=== PATIENT | female | born 1975 | race Caucasian/White ===

== ENCOUNTER 2016-03-23 14:58 | Emergency (ER) | payer MEDICAID, OTHER ==
[~2016-03-23] VITALS: Ht 167.6 cm; Wt 62.6 kg
[~2016-03-23 14:58] MED LIST: ABILIFY15 M1 PO; CELEXA10 MG PO; VISTARIL25 MG PO
[2016-03-23 15:02] VITALS: BP 119/60
--- NOTE | 2016-03-23 17:20 | NUR ---
PATIENT PRESENTS TO ED W LEFT TONGUE PAIN X2HRS; PT STATES WAS CHEWING GUM AND "BIT A HOLE INTO HER TONGUE". DENIES N/V/D; SKIN IS PINK/WARM/DRY; AAOX4 WITH EVEN AND STEADY GAIT; LUNGS CLEAR BL; HR EVEN AND REGULAR; PT DENIES ANY FEVER, CP, SOB, OR COUGH AT THIS TIME; PATIENT STATES PAIN OF 10/10 AT THIS TIME; VSS; PATIENT POSITIONED FOR COMFORT; HOB ELEVATED; BEDRAILS UP X2; BED DOWN. DAVID WEBER EVALUATED PT.
--- NOTE | 2016-03-23 17:30 | NUR ---
Patient discharged with v/s stable. Written and verbal after care instructions given and explained. Patient alert, oriented and verbalized understanding of instructions. Ambulatory with steady gait. All questions addressed prior to discharge. ID band removed. Patient advised to follow up with PMD. Rx of PERIDEX ORAL RINSE given. Patient educated on indication of medication including possible reaction and side effects. Opportunity to ask questions provided and answered.
[2016-03-23 17:37] VITALS: BP 106/74
== END 2016-03-23 17:30 | disposition home or self-care (01) ==
LOC: MED 15:18
DX: S00.512A Abrasion of oral cavity, initial encounter (principal); Z88.6 Allergy status to analgesic agent; X58.XXXA Exposure to other specified factors, initial encounter; Y93.89 Activity, other specified; Y92.89 Other specified places as the place of occurrence of the external cause; Y99.8 Other external cause status

== ENCOUNTER 2016-06-01 16:04 | Emergency (ER) | payer OTHER ==
[~2016-06-01] VITALS: Ht 172.7 cm; Wt 60.8 kg
[~2016-06-01 16:04] MED LIST changes: -ABILIFY15 M1 PO; +ARIP15TA5 PO; -CELEXA10 MG PO; +CITA10TA11 PO; +HYDR25CA1 PO; -VISTARIL25 MG PO
[2016-06-01 16:21] VITALS: BP 124/88
--- NOTE | 2016-06-01 17:14 | NUR ---
PATIENT AMBULATED TO BED 04
--- NOTE | 2016-06-01 17:15 | NUR ---
41/F BIB C/O FELL FROM [facility] X1 WK; DENIES LOC;DID NOT SEEK MEDICAL ATTENTION; SLURRED SPEECH, NO DRIFT, NO FACIAL ASYMMETRY. PT DENIES N/V/D; SKIN IS PINK/WARM/DRY; AAOX4 WITH EVEN AND STEADY GAIT; LUNGS CLEAR BL; HR EVEN AND REGULAR; PT DENIES ANY FEVER, CP, SOB, OR COUGH AT THIS TIME; PATIENT STATES PAIN OF 10/10 AT THIS TIME; VSS; PATIENT POSITIONED FOR COMFORT; HOB ELEVATED; BEDRAILS UP X2; BED DOWN. ER MD MADE AWARE OF PT STATUS.
[2016-06-01 17:45] VITALS: BP 119/67
--- NOTE | 2016-06-01 17:45 | NUR ---
Patient discharged with v/s stable. Written and verbal after care instructions given and explained. Patient verbalized understanding. Ambulatory with steady gait. All questions addressed prior to discharge. Advised to follow up with PMD.
== END 2016-06-01 17:45 | disposition home or self-care (01) ==
LOC: MED 16:04
DX: S00.83XA Contusion of other part of head, initial encounter (principal); F17.200 Nicotine dependence, unspecified, uncomplicated; Z88.5 Allergy status to narcotic agent; W19.XXXA Unspecified fall, initial encounter; Y93.89 Activity, other specified; Y92.89 Other specified places as the place of occurrence of the external cause; Y99.8 Other external cause status
CPT/HCPCS: 70450; 70486; 82948; 99284

== ENCOUNTER 2018-08-22 14:53 | Emergency (ER) | payer OTHER ==
[~2018-08-22] VITALS: Ht 171.4 cm; Wt 71.7 kg
[~2018-08-22 14:53] MED LIST changes: +ARIP15TA1 PO; -ARIP15TA5 PO
[2018-08-22 15:15] VITALS: BP 99/67
--- NOTE | 2018-08-22 15:19 | NUR ---
PT AMB TO [facility]. VSS AT THIS TIME. PT [id number].
--- NOTE | 2018-08-22 15:22 | NUR ---
PT PLAYING ON HER PHONE IN ER LOBBY. NO DISTRESS NOTED.
--- NOTE | 2018-08-22 15:55 | NUR ---
PATIENT AMBULATED TO ER BED 6.
--- NOTE | 2018-08-22 16:00 | NUR ---
PT BIB [facility] WITH C/O ABDOMINAL PAIN AND DIARRHEA X 2 DAYS. PAIN 5/10. +NAUSEA, -VOMITING. PT AA0X4. STATES SHE WANTS TO BE PRESCRIBED LOMOTIL FOR RELIEF. PMH- DENIES
--- NOTE | 2018-08-22 17:00 | NUR ---
CALLED [facility] FOR THE REGULAR TRAY FOR PT.
[2018-08-22 17:06] LABS: BASOPHILS # (AUTO) 0.1 K/uL (0.00-0.22); EOSINOPHILS # (AUTO) 0.2 K/uL (0-0.4); HEMATOCRIT 37.7 % (36-48); HEMOGLOBIN 12.6 g/dL (12.0-16.0); LYMPHOCYTES % (AUTO) 32.7 % (20.5-51.1); MEAN CORPUSCULAR HEMOGLOBIN 31 pg (27-31); MEAN CORPUSCULAR HGB CONC 34 g/dL (33-37); MEAN CORPUSCULAR VOLUME 93.2 fL (80-94); MONOCYTES # (AUTO) 0.6 K/uL (0.8-1.0); MONOCYTES % (AUTO) 9.4 % (1.7-9.3); NEUTROPHILS # (AUTO) 3.3 K/uL (1.8-7.7); NEUTROPHILS % (AUTO) 53.9 % (42.2-75.2); PLATELET COUNT (AUTO) 326 K/uL (140-450); RED BLOOD CELL COUNT(AUTO) 4.04 MIL/uL (4.20-5.40); RED CELL DISTRIBUTION WIDTH 13.5 % (11.6-13.7); WHITE BLOOD COUNT (AUTO) 6.1 K/uL (4.8-10.8)
[2018-08-22 17:15] LABS: ANION GAP 11.4 (8-16); CARBON DIOXIDE 29.4 mmol/L (21-32); CREATININE 0.9 mg/dL (0.6-1.3); POTASSIUM 3.8 mmol/L (3.5-5.1)
[2018-08-22 17:22] LABS: ALBUMIN 3.2 g/dL (3.4-5.0); TOTAL BILIRUBIN 0.1 mg/dL (0.0-1.0)
[2018-08-22 17:30] LABS: APPEARANCE,URINE CLEAR (CLEAR); BILIRUBIN,URINE NEGATIVE (NEGATIVE); BLOOD, URINE NEGATIVE (NEGATIVE); COLOR,URINE YELLOW (YELLOW); LEUKOCYTE ESTERASE ,URINE NEGATIVE (NEGATIVE); NITRITE, URINE NEGATIVE (NEGATIVE); PH,URINE 5.5 (5.0-9.0); UGLUCOSE NEGATIVE (NEGATIVE)
[2018-08-22 17:59] VITALS: BP 127/87
--- NOTE | 2018-08-22 17:59 | NUR ---
Patient discharged with v/s stable. Written and verbal after care instructions given and explained. Patient alert, oriented and verbalized understanding of instructions. Ambulatory with steady gait. All questions addressed prior to discharge. ID band removed. Patient advised to follow up with PMD. Rx of LOMOTIL given. Patient educated on indication of medication including possible reaction and side effects. Opportunity to ask questions provided and answered.
== END 2018-08-22 17:58 | disposition home or self-care (01) ==
LOC: MED 14:53
DX: R19.7 Diarrhea, unspecified (principal); R11.0 Nausea; Z88.5 Allergy status to narcotic agent; Z79.899 Other long term (current) drug therapy
CPT/HCPCS: 36415; 80053; 81003; 81025; 83690; 85025; 99283

== ENCOUNTER 2018-10-15 14:19 | Emergency (ER) | payer OTHER ==
[~2018-10-15] VITALS: Ht 165.1 cm; Wt 72.6 kg
[2018-10-15 14:36] VITALS: BP 98/61
--- NOTE | 2018-10-15 15:20 | NUR ---
PT PRESENTS TO ED W/ C/O LT ARM PAIN SINCE TODAY. MINIMAL WRIST MOVEMENT OBSERVED. PT STATES PAIN IS 8/10. NO OTHER COMPLAINS AT THIS TIME.
--- NOTE | 2018-10-15 16:22 | NUR ---
APPLIED VELCRO SPLINT TO RIGHT WRIST WITHOUT ANY ISSUES
--- NOTE | 2018-10-15 16:25 | NUR ---
VELCRO SPLINT APPLIED BY EMT. PULSES PRESENT PRIOR TO AND POST APPLICATION.
[2018-10-15 16:27] VITALS: BP 110/72
== END 2018-10-15 16:27 | disposition home or self-care (01) ==
LOC: MED 14:19
DX: S63.502A Unspecified sprain of left wrist, initial encounter (principal); Z88.5 Allergy status to narcotic agent; Z79.899 Other long term (current) drug therapy; X58.XXXA Exposure to other specified factors, initial encounter; Y93.89 Activity, other specified; Y92.89 Other specified places as the place of occurrence of the external cause; Y99.8 Other external cause status
CPT/HCPCS: 73110; 81025; 99283; Q0092

== ENCOUNTER 2020-05-29 14:44 | Emergency (ER) | payer OTHER ==
[~2020-05-29] VITALS: Ht 165.1 cm; Wt 59.0 kg
[2020-05-29 14:48] VITALS: BP 127/65
--- NOTE | 2020-05-29 14:55 | NUR ---
PT TAKEN TO BED 11.
--- NOTE | 2020-05-29 15:11 | NUR ---
UNABLE TO DO ASSESSMENT, PT STATES SHE WAS GOING TO HER CAR TO GET ID AT TIME OF TRANSFER TO BED FROM TRIAGE, HAS NOT COME BACK SINCE. ERMD MADE AWARE AND UNABLE TO ASSESS WELL.
--- NOTE | 2020-05-29 15:15 | NUR ---
PATIENT ELOPED FROM FACILITY. DISCHARGE INSTRUCTIONS NOT GIVEN TO PATIENT. DR. LUIS PATHAK NOTIFIED.
== END 2020-05-29 15:15 | disposition left against medical advice (07) ==
LOC: MED 14:44
DX: R51.9 Headache, unspecified (principal); Z53.21 Procedure and treatment not carried out due to patient leaving prior to being seen by health care provider

== ENCOUNTER 2022-02-27 00:09 | Emergency (ER) | payer OTHER ==
[~2022-02-27] VITALS: Ht 167.6 cm; Wt 61.2 kg
[2022-02-27 01:00] VITALS: BP 130/80
--- NOTE | 2022-02-27 01:03 | NUR ---
TO LOBBY A/W BED AMBULATORY
--- NOTE | 2022-02-27 01:39 | NUR ---
SEEN AND EXaMINED BY NICOLÁS
[2022-02-27 02:42] VITALS: BP 121/78
== END 2022-02-27 02:42 | disposition home or self-care (01) ==
LOC: MED 00:09
DX: S09.90XA Unspecified injury of head, initial encounter (principal); Z79.899 Other long term (current) drug therapy; Z88.5 Allergy status to narcotic agent; W01.198A Fall on same level from slipping, tripping and stumbling with subsequent striking against other object, initial encounter; Y93.89 Activity, other specified; Y92.89 Other specified places as the place of occurrence of the external cause; Y99.8 Other external cause status
CPT/HCPCS: 99281

== ENCOUNTER 2022-12-24 12:33 | Emergency (ER) | payer OTHER ==
[~2022-12-24] VITALS: Ht 167.6 cm; Wt 62.6 kg
[2022-12-24 12:50] VITALS: BP 119/85; PULSE 74; RESP 18; TEMP 97.9; O2SAT 97
[2022-12-24] MEDS ORDERED: CETI10TA71 PO (13:30)
[2022-12-24] MEDS ORDERED: DEXT1LOZ11 MM (13:30)
[2022-12-24 13:42] LABS: FLU A ANTIGEN negative (NEGATIVE); FLU B ANTIGEN negative (NEGATIVE)
== END 2022-12-24 13:35 | disposition home or self-care (01) ==
LOC: MED 12:33
DX: R05.8 Other specified cough (principal); Z20.822 Contact with and (suspected) exposure to COVID-19; Z88.5 Allergy status to narcotic agent; Z79.899 Other long term (current) drug therapy
CPT/HCPCS: 99283

== ENCOUNTER 2023-01-04 10:02 | Emergency (ER) | payer OTHER ==
[~2023-01-04] VITALS: Ht 167.6 cm; Wt 64.4 kg
[~2023-01-04 10:02] MED LIST changes: +CETI10TA71 PO; +DEXT1LOZ11 MM
[2023-01-04 10:05] VITALS: BP 115/79; PULSE 75; RESP 15; TEMP 97.9; O2SAT 97
[2023-01-04] MEDS ORDERED: AMOX-1230 PO (12:55)
[2023-01-04 13:23] VITALS: BP 121/79; PULSE 75; RESP 15; TEMP 97.9; O2SAT 97
[2023-01-07] MEDS ORDERED: AMOX-1230 PO (10:23)
== END 2023-01-04 13:23 | disposition home or self-care (01) ==
LOC: MED 10:02
DX: J32.9 Chronic sinusitis, unspecified (principal); Z88.5 Allergy status to narcotic agent; Z79.899 Other long term (current) drug therapy
CPT/HCPCS: 99283

== ENCOUNTER 2023-01-10 09:33 | Emergency (ER) | payer OTHER ==
[~2023-01-10] VITALS: Ht 167.6 cm; Wt 61.7 kg
[~2023-01-10 09:33] MED LIST changes: +AMOX-1230 PO
[2023-01-10 09:44] VITALS: BP 127/73; PULSE 84; RESP 15; TEMP 98; O2SAT 99
[2023-01-10] MEDS ORDERED: DIPH25TA53 PO (10:14)
[2023-01-10] MEDS ORDERED: PRED20TA5 PO (10:14)
[2023-01-10 10:17] VITALS: BP 127/73; PULSE 84; RESP 15; TEMP 98; O2SAT 99
== END 2023-01-10 10:17 | disposition home or self-care (01) ==
LOC: MED 09:33
DX: J30.9 Allergic rhinitis, unspecified (principal); Z79.899 Other long term (current) drug therapy
CPT/HCPCS: 99283

== ENCOUNTER 2023-01-17 14:07 | Emergency (ER) | payer OTHER ==
[~2023-01-17] VITALS: Ht 167.6 cm; Wt 71.7 kg
[~2023-01-17 14:07] MED LIST changes: +DIPH25TA53 PO; +PRED20TA5 PO
[2023-01-17 14:26] VITALS: BP 108/71; PULSE 92; RESP 19; TEMP 97.8; O2SAT 98
[2023-01-17] MEDS ORDERED: GLYC30DR3 OP (15:48)
[2023-01-17] MEDS ORDERED: CETI10TA71 PO (15:48)
== END 2023-01-17 15:52 | disposition home or self-care (01) ==
LOC: MED 14:07
DX: J30.89 Other allergic rhinitis (principal); H53.8 Other visual disturbances; Z88.5 Allergy status to narcotic agent; Z79.899 Other long term (current) drug therapy
CPT/HCPCS: 99282

== ENCOUNTER 2023-02-03 11:25 | Emergency (ER) | payer OTHER ==
[~2023-02-03] VITALS: Ht 167.6 cm; Wt 73.5 kg
[~2023-02-03 11:25] MED LIST changes: +GLYC30DR3 OP
[2023-02-03 12:38] VITALS: BP 114/85; PULSE 86; RESP 20; TEMP 98.5; O2SAT 100
[2023-02-03] MEDS ORDERED: CIPR10DR4 BOTH EYES (12:54)
[2023-02-03 13:24] VITALS: BP 114/85; PULSE 86; RESP 20; TEMP 98.5; O2SAT 100
== END 2023-02-03 13:24 | disposition home or self-care (01) ==
LOC: MED 11:25
DX: H10.89 Other conjunctivitis (principal); B96.89 Other specified bacterial agents as the cause of diseases classified elsewhere; Z79.899 Other long term (current) drug therapy; Z79.2 Long term (current) use of antibiotics; Z88.5 Allergy status to narcotic agent
CPT/HCPCS: 99283

== ENCOUNTER 2023-11-10 10:33 | Emergency (ER) | payer OTHER ==
[~2023-11-10] VITALS: Ht 167.6 cm; Wt 70.3 kg
[~2023-11-10 10:33] MED LIST changes: +CIPR10DR4 BOTH EYES
[2023-11-10 10:41] VITALS: BP 127/82; PULSE 67; RESP 18; TEMP 98; O2SAT 97
[2023-11-10] MEDS ORDERED: IBUP-2213 PO (12:12)
[2023-11-10 12:48] VITALS: BP 127/82; PULSE 67; RESP 18; TEMP 98; O2SAT 97
== END 2023-11-10 12:48 | disposition home or self-care (01) ==
LOC: MED 10:33
DX: S93.402A Sprain of unspecified ligament of left ankle, initial encounter (principal); Z79.899 Other long term (current) drug therapy; Z88.5 Allergy status to narcotic agent; X58.XXXA Exposure to other specified factors, initial encounter; Y92.89 Other specified places as the place of occurrence of the external cause; Y93.89 Activity, other specified; Y99.8 Other external cause status
CPT/HCPCS: 73610; 99283